=== PATIENT | male | born 1995 | race Caucasian/White ===

== ENCOUNTER 2016-07-08 14:38 | Day surgery (SDC) | payer MEDICAID ==
[~2016-07-08 14:38] MED LIST: DIPHENHYDRAMINE HCL 50 MG/ML VIAL ONE; MIDAZOLAM 2 MG/2 ML INJ ONE; NALOXONE HCL INJ/PF 0.4 MG/1 ML SDV ONE; ONDANSETRON HCL INJ/PF 4 MG/2 ML SDV ONE; PROMETHAZINE HCL INJ 25 MG/1 ML VIAL ONE
[2016-07-08] MEDS ORDERED: GLUCAGON,HUMAN RECOMB 1 MG INJ ONE (14:39)
[2016-07-08] MEDS ORDERED: EPINEPHRINE INJ 1 MG/10 ML DISP.SYRIN ONE (14:39)
[2016-07-08] MEDS ORDERED: FLUMAZENIL INJ 0.5 MG/5 ML VIAL IV ONE (14:39)
[2016-07-08] MEDS: MIDAZOLAM 2 MG/2 ML INJ ONE ×2 (14:56→15:00)
[2016-07-08] MEDS: FENTANYL CITRATE INJ/PF 100 MCG/2 ML AMPUL ONE ×3 (14:58→15:04)
--- NOTE | 2016-07-08 15:11 | Operative Report ---
Operative Report DATE OF SURGERY: 07/08/16 Operative Report: The risks benefits and alternatives of the procedure explained to the patient in detail and informed consent is obtained that GIF Olympus video scope was inserted into the patient's mouth and hypopharynx the esophagus is identified intubated and insufflated the scope was then advanced through the esophagus stomach and duodenum retroflexion maneuver is done the esophagus stomach and first and second portions of the duodenum examined PREOPERATIVE DIAGNOSIS: Follow-up esophageal ulcer. Patient has eosinophilic esophagitis POSTOPERATIVE DIAGNOSIS: Esophageal rings and furrows that are consistent with eosinophilic esophagitis. Hiatal hernia. Gastritis OPERATION: EGD with biopsy SURGEON: GASTON GRIFFITH ANESTHESIA: Moderate Sedation - 4 mg of Versed, 150 g of fentanyl. TISSUE REMOVED OR ALTERED: Gastric specimens obtained to rule out for Helicobacter pylori. COMPLICATIONS: None. ESTIMATED BLOOD LOSS: none. INTRAOPERATIVE FINDINGS: Esophageal rings and furrows. Hiatal hernia. Gastritis PROCEDURE: Patient tolerated the procedure well. No immediate postprocedure complications are noted. Patient is discharged in good condition. Discharge date 07/08/2016. Discharge diet: Regular. Discharge activity: Regular. He has a 2-3 follow-up to discuss findings. Patient is instructed to go to emergency room call the office if any further problems or questions. Await on biopsies.
[2016-07-08 16:30] VITALS: BP 122/69
== END 2016-07-08 16:10 | disposition home or self-care (01) ==
LOC: END 14:38
PROVIDERS: ATTEND Internal Medicine Gastroenterology
PROC: 0DB68ZX Excision of Stomach, Via Natural or Artificial Opening Endoscopic, Diagnostic (ICD-10-PCS; principal; 2016-07-08 14:30)
DX: K29.50 Unspecified chronic gastritis without bleeding (principal); B96.81 Helicobacter pylori [H. pylori] as the cause of diseases classified elsewhere; K44.9 Diaphragmatic hernia without obstruction or gangrene; K20.0 Eosinophilic esophagitis
CPT/HCPCS: 43239; J2250; J3010; J2405; J0171; J1200; J1610; J2310; J2550; J3490

== ENCOUNTER 2016-07-30 18:19 | Emergency (ER) | payer MEDICAID ==
--- NOTE | 2016-07-30 18:38 | ER Document Report ---
ED Medical Screen (RME) - General Stated Complaint: FEVER Time seen by provider: 18:35 Mode of Arrival: Ambulatory Information source: Patient Notes: 21-year-old male presents to ED for cough and fever since yesterday. Patient states she passed out once yesterday and twice today. He was sent over from the doctor's office for temperature of 103 at the urgent care and passed out in urgent care they told him to come to the emergency room then at 12:30. He states he came into the emergency room and was 2 packs we went home he states yesterday his temperature was 104.3. He states he's been eat and a lot of ice since then and his temperature is now 99.2. I have greeted and performed a rapid initial assessment of this patient. A comprehensive ED assessment and evaluation of the patient, analysis of test results and completion of medical decision making process will be conducted by an additional ED providers. TRAVEL OUTSIDE OF THE [place] IN LAST 30 DAYS: No - Related Data Allergies/Adverse Reactions: No Known Allergies Allergy (Verified 07/30/16 18:34) Past Medical History - Past Medical History Cardiac Medical History: Reports: Hx Hypertension Denies: Hx Coronary Artery Disease, Hx Heart Attack Pulmonary Medical History: Reports: Hx Bronchitis, Hx Pneumonia Denies: Hx Asthma, Hx COPD Neurological Medical History: Denies: Hx Cerebrovascular Accident, Hx Seizures GI Medical History: Denies: Hx Hiatal Hernia, Hx Ulcer Musculoskeltal Medical History: Denies Hx Arthritis Psychiatric Medical History: Reports: Hx Attention Deficit Hyperactivity Disorder, Hx Depression Past Surgical History: Reports: Hx Orthopedic Surgery. Denies: Hx Open Heart Surgery - Immunizations Immunizations up to date: Yes Hx Diphtheria, Pertussis, Tetanus Vaccination: Yes
[2016-07-30 19:42] LABS: ABSOLUTE EOSINOPHILS # (AUTO) 0.1 10^3/uL (0.0-0.6); ABSOLUTE LYMPHOCYTES (AUTO) 0.7 10^3/uL (0.5-4.7); ABSOLUTE MONOCYTES (AUTO) 0.5 10^3/uL (0.1-1.4); BASOPHILS % (AUTO) 0.9 % (0-2); EOSINOPHILS % (AUTO) 3.3 % (0-6); HEMATOCRIT 41.2 % (37.9-51.0); HGB HCT DIFFERENCE 0.8; LYMPHOCYTES % (AUTO) 22.3 % (13-45); MEAN CORPUSCULAR HGB CONC 33.8 g/dL (32.0-36.0); MEAN CORPUSCULAR VOLUME 83 fl (80-97); MONOCYTES % (AUTO) 13.7 % (3-13); RED BLOOD COUNT 4.98 10^6/uL (4.35-5.55); RED CELL DISTRIBUTION WIDTH 12.9 % (11.5-14.0); SEGMENTED NEUTROPHILS % (AUTO) 59.8 % (42-78); WHITE BLOOD COUNT 3.3 10^3/uL (4.0-10.5)
[2016-07-30 19:46] LABS: APPEARANCE,URINE SLIGHTLY-CLOUDY; BILIRUBIN,URINE NEGATIVE (NEGATIVE); GLUCOSE, URINE NEGATIVE (NEGATIVE); KETONES,URINE NEGATIVE (NEGATIVE); LEUKOCYTE ESTERASE,URINE NEGATIVE (NEGATIVE); NITRITE,URINE NEGATIVE (NEGATIVE); PROTEIN,URINE 30 mg/dL (NEGATIVE); URINE SPECIFIC GRAVITY 1.025; UROBILINOGEN,URINE NEGATIVE mg/dL (<2.0)
[2016-07-30 19:53] LABS: ALANINE AMINOTRANSFERASE 83 U/L (21-72); ALBUMIN 5.2 g/dL (3.5-5.0); ALKALINE PHOSPHATASE 72 U/L (38-126); ANION GAP 14 (5-19); ASPARTATE AMINO TRANSFERASE 44 U/L (17-59); BILIRUBIN,TOTAL 0.5 mg/dL (0.2-1.3); BLOOD UREA NITROGEN 15 mg/dL (7-20); CALCIUM 9.5 mg/dL (8.4-10.2); CARBON DIOXIDE 28 mmol/L (22-30); CHLORIDE 101 mmol/L (98-107); CREATININE RESULT 0.85 mg/dL (0.52-1.25); GLUCOSE 87 mg/dL (75-110); POTASSIUM 4.2 mmol/L (3.6-5.0); SODIUM 142.5 mmol/L (137-145); TOTAL PROTEIN 7.9 g/dL (6.3-8.2)
--- NOTE | 2016-07-30 21:18 | ER Document Report ---
ED General - General Chief Complaint: Fever Stated Complaint: FEVER Mode of Arrival: Ambulatory Notes: Patient is a 21-year-old male with past medical history of polycystic kidney disease who presents with 2 days of fever, headache, cough, sputum compression, and vomiting. Multiple sick contacts with similar illness. He has been trying Tylenol and ibuprofen with moderate improvement of his symptoms. Nothing worsens his symptoms. He was referred to the emergency department by urgent care. Denies history of similar symptoms in the past. Denies any neck pain, confusion, weakness or numbness. He has been able to tolerate oral intake since arriving here in the emergency department. TRAVEL OUTSIDE OF THE [place] IN LAST 30 DAYS: No - Related Data Allergies/Adverse Reactions: No Known Allergies Allergy (Verified 07/30/16 18:34) Past Medical History - General Information source: Patient - Social History Smoking Status: Never Smoker Chew tobacco use (# tins/day): No Frequency of alcohol use: None Drug Abuse: None Lives with: Parents Family History: Reviewed & Not Pertinent Patient has suicidal ideation: No Patient has homicidal ideation: No - Past Medical History Cardiac Medical History: Reports: Hx Hypertension Denies: Hx Coronary Artery Disease, Hx Heart Attack Pulmonary Medical History: Reports: Hx Bronchitis, Hx Pneumonia Denies: Hx Asthma, Hx COPD Neurological Medical History: Denies: Hx Cerebrovascular Accident, Hx Seizures Renal/ Medical History: Denies: Hx Peritoneal Dialysis GI Medical History: Denies: Hx Hiatal Hernia, Hx Ulcer Musculoskeltal Medical History: Denies Hx Arthritis Psychiatric Medical History: Reports: Hx Attention Deficit Hyperactivity Disorder, Hx Depression Past Surgical History: Reports: Hx Orthopedic Surgery. Denies: Hx Open Heart Surgery - Immunizations Immunizations up to date: Yes Hx Diphtheria, Pertussis, Tetanus Vaccination: Yes Review of Systems - Review of Systems Notes: Constitutional: Positive for fever. HENT: Negative for sore throat. Eyes: Negative for visual changes. Cardiovascular: Negative for chest pain. Respiratory: Positive for cough Gastrointestinal: Negative for abdominal pain, positive for vomiting Genitourinary: Negative for dysuria. Musculoskeletal: Negative for back pain. Skin: Negative for rash. Neurological: Positive for headaches, negative for weakness or numbness. 10 point ROS negative except as marked above and in HPI. Physical Exam - Vital signs Vitals: Temp Pulse Resp BP Pulse Ox 99.2 F 96 20 158/85 H 99 07/30/16 18:32 07/30/16 18:32 07/30/16 18:32 07/30/16 18:32 07/30/16 18:32 Interpretation: Hypertensive Notes: PHYSICAL EXAMINATION: GENERAL: Well-appearing, well-nourished and in no acute distress. HEAD: Atraumatic, normocephalic. EYES: Pupils equal round and reactive to light, extraocular movements intact, sclera anicteric, conjunctiva are normal. ENT: nares patent, oropharynx clear without exudates. Moist mucous membranes. NECK: Normal range of motion, supple without lymphadenopathy LUNGS: Breath sounds clear to auscultation bilaterally and equal. No wheezes rales or rhonchi. HEART: Regular rate and rhythm without murmurs ABDOMEN: Soft, nontender, normoactive bowel sounds. No guarding, no rebound. No masses appreciated. EXTREMITIES: Normal range of motion, no pitting or edema. No cyanosis. NEUROLOGICAL: No focal neurological deficits. Moves all extremities spontaneously and on command. PSYCH: Normal mood, normal affect. SKIN: Warm, Dry, normal turgor, no rashes or lesions noted. Course - Re-evaluation Re-evalutation: 07/30/16 21:17 Presentation is most consistent with a viral upper respiratory infection versus possible influenza. Patient is overall well appearance, vitals within normal limits, well-hydrated. Patient denies any headache, neck pain, and has no evidence of meningismus on examination. Lungs are clear bilaterally. No evidence of respiratory distress. Based on clinical exam and history, I do not suspect an acute pneumonia, meningitis, strep pharyngitis, or an acute encephalitis. Labs and CXR unremarkable. At this time will discharge with return precautions and follow-up recommendations. Verbal discharge instructions given a the bedside and opportunity for questions given. Medication warnings reviewed. Patient is in agreement with this plan and has verbalized understanding of return precautions and the need for primary care follow-up in the next 24-72 hours. - Vital Signs Vital signs: Temp Pulse Resp BP Pulse Ox 99.2 F 88 16 136/61 H 98 07/30/16 18:32 07/30/16 21:31 07/30/16 21:31 07/30/16 21:31 07/30/16 21:31 - Laboratory Result Diagrams: 07/30/16 19:22 07/30/16 19:22 Laboratory results interpreted by me: 07/30/16 07/30/16 07/30/16 19:22 19:22 19:22 WBC 3.3 L Monocytes % 13.7 H ALT 83 H Albumin 5.2 H Urine Protein 30 H - Diagnostic Test Radiology reviewed: Image reviewed, Reports reviewed Radiology results interpreted by me: 07/31/16 04:28 Chest x-ray: No acute infiltrate Discharge - Discharge Clinical Impression: Vomiting Qualifiers: Vomiting type: unspecified Vomiting Intractability: non-intractable Nausea presence: with nausea Qualified Code(s): R11.2 - Nausea with vomiting, unspecified Upper respiratory infection Qualifiers: URI type: unspecified URI Qualified Code(s): J06.9 - Acute upper respiratory infection, unspecified Condition: Good Disposition: HOME, SELF-CARE Additional Instructions: Your symptoms are most likely due to a viral infection it should resolve over the next 7-14 days. You should take [id number] guanfacine per bottle instructions to help thin the mucus. For nasal congestion: I would recommend that you get [id number] oxymetazoline also known is afrin. Use only per bottle instructions and be sure to never use this for more than 3 days if you can develop severe rebound congestion. You may also use tylenol or ibuprofen as needed for aches and thorat discomfort. Please be sure to drink plenty of fluids and get rest. Your symptoms should only get better from here. If you are getting worse in any regard, you need to return to the emergency department immediately. Return to the emergency department he began having difficulty breathing, chest pain, persistent vomiting, or any other symptoms that are concerning to you. Forms: Parent Work Note, Return to School, Return to Work
[2016-07-30 21:33] VITALS: BP 136/61
== END 2016-07-30 21:36 | disposition home or self-care (01) ==
LOC: ER 18:19
DX: J06.9 Acute upper respiratory infection, unspecified (principal); R11.2 Nausea with vomiting, unspecified; R50.9 Fever, unspecified; Q61.3 Polycystic kidney, unspecified; I10 Essential (primary) hypertension
CPT/HCPCS: 36415; 71020; 80053; 81001; 85025; 87040; 99283

== ENCOUNTER 2016-10-11 01:07 | Emergency (ER) | payer MEDICAID ==
[2016-10-11 01:28] VITALS: BP 152/89
--- NOTE | 2016-10-11 03:08 | ER Document Report ---
HPI - HPI Patient complains to provider of: hand laceration Onset: Just prior to arrival Onset/Duration: Sudden Severity: Moderate Pain Level: 3 Context: Patient presents to emergency department with complaints of laceration to his dorsal left hand. Patient reports he was putting tenting on his headlights when he cut himself on the blade. He reports his shots are up-to-date. Has full range of motion. Patient reports that he cannot feel his whole hand now. Associated Symptoms: None Exacerbated by: Denies Relieved by: Denies Similar symptoms previously: No Recently seen / treated by doctor: No - DERM Skin Color: Normal Past Medical History - General Information source: Patient - Social History Smoking Status: Unknown if Ever Smoked Cigarette use (# per day): No Frequency of alcohol use: None Drug Abuse: None Occupation: student and [employer] Lives with: Family Family History: Reviewed & Not Pertinent Patient has suicidal ideation: No Patient has homicidal ideation: No - Past Medical History Cardiac Medical History: Reports: Hx Hypertension Denies: Hx Coronary Artery Disease, Hx Heart Attack Pulmonary Medical History: Reports: Hx Bronchitis, Hx Pneumonia Denies: Hx Asthma, Hx COPD Neurological Medical History: Denies: Hx Cerebrovascular Accident, Hx Seizures Renal/ Medical History: Denies: Hx Peritoneal Dialysis GI Medical History: Denies: Hx Hiatal Hernia, Hx Ulcer Musculoskeltal Medical History: Denies Hx Arthritis Psychiatric Medical History: Reports: Hx Attention Deficit Hyperactivity Disorder, Hx Depression Past Surgical History: Reports: Hx Orthopedic Surgery. Denies: Hx Open Heart Surgery - Immunizations Immunizations up to date: Yes Hx Diphtheria, Pertussis, Tetanus Vaccination: Yes Vertical Provider Document - CONSTITUTIONAL Agree With Documented VS: Yes Exam Limitations: No Limitations General Appearance: WD/WN, No Apparent Distress - INFECTION CONTROL TRAVEL OUTSIDE OF THE [place] IN LAST 30 DAYS: No - HEENT HEENT: Atraumatic, Normocephalic - RESPIRATORY O2 Sat by Pulse Oximetry: 99 - MUSCULOSKELETAL/EXTREMETIES Musculoskeletal/Extremeties: MAEW, FROM, Non-Tender - NEURO Level of Consciousness: Awake, Alert, Appropriate - DERM Integumentary: Warm, Dry, Laceration - 11 mm left dorsal hand vertical, linear mcp between 1-2 digit Course - Vital Signs Vital signs: Temp Pulse Resp BP Pulse Ox 97.5 F 71 18 152/89 H 99 10/11/16 01:24 10/11/16 01:24 10/11/16 01:24 10/11/16 01:24 10/11/16 01:24 Procedures - Laceration/Wound Repair Left Hand Wound length (cm): 1.2 Wound's Depth, Shape: Superficial Laceration pre-procedure: Shur-Clens applied Wound explored: Clean Wound Repaired With: Steri-strips, Dermabond Hands back picture: 1 - 12 mm linear vertical laceration, no active bleeding, closed with steri strips and dermabond Discharge - Discharge Clinical Impression: Laceration, Elevated blood pressure reading Condition: Stable Disposition: HOME, SELF-CARE Instructions: Care of Steri-Strip Closure ([facility]), Skin Adhesive Closure ([facility]) Additional Instructions: *You have been treated for a laceration with steri strip and dermabond closure *Take ibuprofen as indicated for pain *Monitor the site for signs of infection such as increasing pain, redness, swelling, warmth *Keep your hand clean *Follow up with Magn[facility] rosenberg your primary care provider within 3 days for recheck *Return to ED for signs of infection, worsening condition, changes, needs Monitor your blood pressure. Your blood pressure was elevated today. This may be because you were anxious, in pain or because you need medication. It is important to follow up with your primary care provider for full evaluation. Forms: Elevated Blood Pressure, Return to Work
== END 2016-10-11 03:49 | disposition home or self-care (01) ==
LOC: ER 01:07
DX: S61.412A Laceration without foreign body of left hand, initial encounter (principal); R03.0 Elevated blood-pressure reading, without diagnosis of hypertension; W26.0XXA Contact with knife, initial encounter
CPT/HCPCS: 99282

== ENCOUNTER 2017-01-13 12:37 | Emergency (ER) | payer MEDICAID ==
[2017-01-13] MEDS ORDERED: NORMAL SALINE 1000 ML 1,000 ML IV ONE (13:01)
--- NOTE | 2017-01-13 13:09 | ER Document Report ---
ED General - General Chief Complaint: Snake Bite Stated Complaint: POSSIBLE SNAKE BITE Mode of Arrival: Ambulatory Information source: Patient Notes: 21 yr old male presents with snake bite to the [place] right forearm, pt denies any swelling. believes it was a rat snake TRAVEL OUTSIDE OF THE [place] IN LAST 30 DAYS: No - HPI Onset: Just prior to arrival Onset/Duration: Sudden Quality of pain: Achy Severity: Mild Pain Level: 1 Associated symptoms: Other Exacerbated by: Denies Relieved by: Denies Similar symptoms previously: No Recently seen / treated by doctor: No - Related Data Allergies/Adverse Reactions: lidocaine Adverse Reaction (Verified 01/13/17 12:41) Hives Past Medical History - Social History Smoking Status: Never Smoker Cigarette use (# per day): No Chew tobacco use (# tins/day): No Smoking Education Provided: No Family History: Reviewed & Not Pertinent Patient has suicidal ideation: No Patient has homicidal ideation: No - Past Medical History Cardiac Medical History: Reports: Hx Hypertension Denies: Hx Coronary Artery Disease, Hx Heart Attack Pulmonary Medical History: Reports: Hx Bronchitis, Hx Pneumonia Denies: Hx Asthma, Hx COPD Neurological Medical History: Denies: Hx Cerebrovascular Accident, Hx Seizures Renal/ Medical History: Denies: Hx Peritoneal Dialysis GI Medical History: Denies: Hx Hiatal Hernia, Hx Ulcer Musculoskeltal Medical History: Denies Hx Arthritis Psychiatric Medical History: Reports: Hx Attention Deficit Hyperactivity Disorder, Hx Depression Past Surgical History: Reports: Hx Orthopedic Surgery. Denies: Hx Open Heart Surgery - Immunizations Immunizations up to date: Yes Hx Diphtheria, Pertussis, Tetanus Vaccination: Yes Review of Systems - Review of Systems Notes: REVIEW OF SYSTEMS: CONSTITUTIONAL : Denies fever, chills, or sweats. Denies recent illness. EENT: Denies eye, ear, throat, or mouth pain or symptoms. Denies nasal or sinus congestion or discharge. Denies throat, tongue, or mouth swelling or difficulty swallowing. CARDIOVASCULAR: Denies chest pain. Denies palpitations or racing or irregular heart beat. Denies ankle edema. RESPIRATORY: Denies cough, cold, or chest congestion. Denies shortness of breath, difficulty breathing, or wheezing. GASTROINTESTINAL: Denies abdominal pain or distention. Denies nausea, vomiting , or diarrhea. Denies blood in vomitus, stools, or per rectum. Denies black, tarry stools. Denies constipation. GENITOURINARY: Denies difficulty urinating, painful urination, burning, frequency, blood in urine, or discharge. MUSCULOSKELETAL: Denies back or neck pain or stiffness. Denies joint pain or swelling. SKIN: right arm swelling HEMATOLOGIC : Denies easy bruising or bleeding. LYMPHATIC: Denies swollen, enlarged glands. NEUROLOGICAL: Denies confusion or altered mental status. Denies passing out or loss of consciousness. Denies dizziness or lightheadedness. Denies headache. Denies weakness or paralysis or loss of use of either side. Denies problems with gait or speech. Denies sensory loss, numbness, or tingling. Denies seizures. PSYCHIATRIC: Denies anxiety or stress. Denies depression, suicidal ideation, or homicidal ideation. ALL OTHER SYSTEMS REVIEWED AND NEGATIVE. Dictation was performed using [employer] recognition software PHYSICAL EXAMINATION: GENERAL: Well-appearing, well-nourished and in no acute distress. HEAD: Atraumatic, normocephalic. EYES: Pupils equal round and reactive to light, extraocular movements intact, sclera anicteric, conjunctiva are normal. ENT: Nares patent, oropharynx clear without exudates. Moist mucous membranes. NECK: Normal range of motion, supple without lymphadenopathy LUNGS: Breath sounds clear to auscultation bilaterally and equal. No wheezes rales or rhonchi. HEART: Regular rate and rhythm without murmurs ABDOMEN: Soft, nontender, nondistended abdomen. No guarding, no rebound. No masses appreciated. Musculoskeletal: Normal range of motion, no pitting or edema. No cyanosis. NEUROLOGICAL: Cranial nerves grossly intact. Normal speech, normal gait. Normal sensory, motor exams PSYCH: Normal mood, normal affect. SKIN: 2 bite shannan of the dorsal right forearm ,minimal edema Physical Exam - Vital signs Vitals: Temp Pulse Resp BP Pulse Ox 98.2 F 87 18 142/81 H 97 01/13/17 12:41 01/13/17 12:41 01/13/17 12:41 01/13/17 12:41 01/13/17 12:41 Course - Re-evaluation Re-evalutation: 01/13/17 13:08 Lab work pending patient otherwise looks well probable non-venomous bite 01/13/17 15:10 pt watched throughout , no complications. pt dc home with very close return precautions After performing a Medical Screening Examination, I estimate there is LOW risk for OPEN FRACTURE, COMPARTMENT SYNDROME, TENDON RUPTURE, ACUTE NEUROVASCULAR INJURY, or RETAINED FOREIGN BODY, thus I consider the discharge disposition reasonable. Also, there is no evidence or peritonitis, sepsis, or toxicity. I have reevaluated this patient multiple times and no significant life threatening changes are noted. The patient and I have discussed the diagnosis and risks, and we agree with discharging home with close follow-up with the understanding that symptoms and presentations can change. We also discussed returning to the Emergency Department immediately if new or worsening symptoms occur. We have discussed the symptoms which are most concerning (e.g., changing or worsening pain, fever, numbness, weakness, cool or painful digits) that necessitate immediate return. - Vital Signs Vital signs: Temp Pulse Resp BP Pulse Ox 98.2 F 87 17 130/78 H 99 01/13/17 12:41 01/13/17 12:41 01/13/17 14:01 01/13/17 14:00 01/13/17 14:01 - Laboratory Result Diagrams: 01/13/17 13:30 01/13/17 13:30 Laboratory results interpreted by me: 01/13/17 13:30 Creatine Kinase 209 H Discharge - Discharge Clinical Impression: Snake bite Qualifiers: Encounter type: initial encounter Qualified Code(s): W59.11XA - Bitten by nonvenomous snake, initial encounter Condition: Stable Disposition: HOME, SELF-CARE Instructions: Snakebites ([facility]) Additional Instructions: Follow up with your physician tomorrow for further care or return to the ED IMMEDIATELY if symptoms worsen or new concerns occur. If you cannot afford to follow up with your primary care physician a list of low cost clinics have been provided at the end of your discharge papers as well.
[2017-01-13 13:49] LABS: ABSOLUTE EOSINOPHILS # (AUTO) 0.2 10^3/uL (0.0-0.6); ABSOLUTE LYMPHOCYTES (AUTO) 1.5 10^3/uL (0.5-4.7); ABSOLUTE MONOCYTES (AUTO) 0.5 10^3/uL (0.1-1.4); ABSOLUTE NEUT (AUTO) 3.4 10^3/uL (1.7-8.2); BASOPHILS % (AUTO) 0.7 % (0-2); EOSINOPHILS % (AUTO) 3.1 % (0-6); HEMATOCRIT 39.9 % (37.9-51.0); HEMOGLOBIN 13.7 g/dL (13.5-17.0); HGB HCT DIFFERENCE 1.2; LYMPHOCYTES % (AUTO) 26.4 % (13-45); MEAN CORPUSCULAR HEMOGLOBIN 28.2 pg (27.0-33.4); MEAN CORPUSCULAR HGB CONC 34.3 g/dL (32.0-36.0); MEAN CORPUSCULAR VOLUME 82 fl (80-97); MONOCYTES % (AUTO) 8.3 % (3-13); RED BLOOD COUNT 4.86 10^6/uL (4.35-5.55); RED CELL DISTRIBUTION WIDTH 13.2 % (11.5-14.0); SEGMENTED NEUTROPHILS % (AUTO) 61.5 % (42-78); WHITE BLOOD COUNT 5.6 10^3/uL (4.0-10.5)
[2017-01-13 13:54] LABS: PROTHROMBIN TIME 13.1 SEC (11.4-15.4)
[2017-01-13 13:55] LABS: FIBRINOGEN 295 mg/dL (209-497)
[2017-01-13 14:10] LABS: D-DIMER < 0.27 ug/mL (0.00-0.50)
[2017-01-13 14:14] LABS: APPEARANCE,URINE CLEAR; BILIRUBIN,URINE NEGATIVE (NEGATIVE); GLUCOSE, URINE NEGATIVE (NEGATIVE); KETONES,URINE NEGATIVE (NEGATIVE); LEUKOCYTE ESTERASE,URINE NEGATIVE (NEGATIVE); NITRITE,URINE NEGATIVE (NEGATIVE); PROTEIN,URINE NEGATIVE (NEGATIVE); URINE SPECIFIC GRAVITY 1.026; UROBILINOGEN,URINE NEGATIVE mg/dL (<2.0)
[2017-01-13 14:23] LABS: ANION GAP 13 (5-19); BLOOD UREA NITROGEN 16 mg/dL (7-20); CALCIUM 9.7 mg/dL (8.4-10.2); CARBON DIOXIDE 24 mmol/L (22-30); CHLORIDE 104 mmol/L (98-107); CREATINE KINASE 209 U/L (55-170); CREATININE RESULT 0.74 mg/dL (0.52-1.25); GLUCOSE 84 mg/dL (75-110); POTASSIUM 4.3 mmol/L (3.6-5.0); SODIUM 141.4 mmol/L (137-145)
[2017-01-13 15:22] VITALS: BP 116/71
== END 2017-01-13 15:15 | disposition home or self-care (01) ==
LOC: ER 12:37
DX: T63.001A Toxic effect of unspecified snake venom, accidental (unintentional), initial encounter (principal); W59.11XA Bitten by nonvenomous snake, initial encounter
CPT/HCPCS: 99283; 96360; 96361; 36415; 82550; 85025; 85384; 85362; 85610; 85730; 83874; 80048; 81001; 85379; J7030

== ENCOUNTER 2018-07-21 10:00 | Emergency (ER) | payer SELFPAY ==
[2018-07-21] MEDS ORDERED: NORMAL SALINE 1000 ML 1,000 ML IV ONE (10:23)
[2018-07-21] MEDS ORDERED: ONDANSETRON HCL INJ/PF 4 MG/2 ML SDV IV ONE (10:23)
[2018-07-21] MEDS ORDERED: HYDROMORPHONE HCL INJ/PF 2 MG/ML AMPULE IV ONE ×2 (10:23→15:06)
--- NOTE | 2018-07-21 10:26 | ER Document Report ---
ED Medical Screen (RME) - General Chief Complaint: Abdominal Pain Stated Complaint: ABDOMINAL PAIN Time Seen by Provider: 07/21/18 10:14 Mode of Arrival: Ambulatory Information source: Patient Notes: This is a 23-year-old man with a history of esophageal ulcers, polycystic kidney disease, hypertension who is been taking Naprosyn for the past week (prescribed by primary care doctor at [facility]). Patient presents to the emergency room with right upper quadrant pain starting approximately 7:30 AM. He does have nausea and vomiting. The patient vomited 3 times. He states that on the third episode, he had gross blood in the vomitus (he has a picture of it: It looks like gross red blood). He does have right upper quadrant tenderness in the emergency room. He states that he was prescribed the Naprosyn because of right knee pain which she is been experiencing. He states that he was told he has arthritis and was given the Naprosyn which she is been taking for a week. He does state that he was having some nausea last night but the pain started this morning. TRAVEL OUTSIDE OF THE [place] IN LAST 30 DAYS: No - Related Data Allergies/Adverse Reactions: acetaminophen [From Percocet] Adverse Reaction (Verified 07/21/18 10:01) oxycodone [From Percocet] Adverse Reaction (Verified 07/21/18 10:01) Past Medical History - Social History Frequency of alcohol use: Rare Drug Abuse: None - Past Medical History Cardiac Medical History: Reports: Hx Hypertension Denies: Hx Coronary Artery Disease, Hx Heart Attack Pulmonary Medical History: Reports: Hx Bronchitis, Hx Pneumonia Denies: Hx Asthma, Hx COPD Neurological Medical History: Denies: Hx Cerebrovascular Accident, Hx Seizures Renal/ Medical History: Denies: Hx Peritoneal Dialysis GI Medical History: Denies: Hx Hiatal Hernia, Hx Ulcer Musculoskeltal Medical History: Denies Hx Arthritis Psychiatric Medical History: Reports: Hx Attention Deficit Hyperactivity Disorder, Hx Depression Past Surgical History: Reports: Hx Orthopedic Surgery. Denies: Hx Open Heart Surgery - Immunizations Immunizations up to date: Yes Hx Diphtheria, Pertussis, Tetanus Vaccination: Yes Physical Exam - Vital signs Vitals: Temp Pulse Resp BP Pulse Ox 97.7 F 91 18 128/64 H 98 07/21/18 10:05 07/21/18 10:05 07/21/18 10:05 07/21/18 10:05 07/21/18 10:05 Course - Vital Signs Vital signs: Temp Pulse Resp BP Pulse Ox 97.7 F 91 18 128/64 H 98 07/21/18 10:05 07/21/18 10:05 07/21/18 10:05 07/21/18 10:05 07/21/18 10:05
[2018-07-21 10:56] LABS: ABSOLUTE BASOPHILS # (AUTO) 0.1 10^3/uL (0.0-0.2); ABSOLUTE EOSINOPHILS # (AUTO) 0.4 10^3/uL (0.0-0.6); ABSOLUTE LYMPHOCYTES (AUTO) 1.9 10^3/uL (0.5-4.7); ABSOLUTE MONOCYTES (AUTO) 0.6 10^3/uL (0.1-1.4); BASOPHILS % (AUTO) 0.9 % (0-2); HEMATOCRIT 44.9 % (37.9-51.0); HEMOGLOBIN 16.1 g/dL (13.5-17.0); LYMPHOCYTES % (AUTO) 23.4 % (13-45); MEAN CORPUSCULAR HEMOGLOBIN 29.1 pg (27.0-33.4); MEAN CORPUSCULAR VOLUME 81 fl (80-97); MONOCYTES % (AUTO) 7.8 % (3-13); PLATELET COUNT 310 10^3/uL (150-450); RED BLOOD COUNT 5.54 10^6/uL (4.35-5.55); RED CELL DISTRIBUTION WIDTH 13.4 % (11.5-14.0); SEGMENTED NEUTROPHILS % (AUTO) 62.9 % (42-78); TOTAL CELLS COUNTED % (AUTO) 100 %
[2018-07-21 10:59] LABS: APPEARANCE,URINE CLEAR; BILIRUBIN,URINE NEGATIVE (NEGATIVE); COLOR,URINE YELLOW; GLUCOSE, URINE NEGATIVE (NEGATIVE); KETONES,URINE NEGATIVE (NEGATIVE); LEUKOCYTE ESTERASE,URINE NEGATIVE (NEGATIVE); NITRITE,URINE NEGATIVE (NEGATIVE); PROTEIN,URINE NEGATIVE (NEGATIVE); URINE SPECIFIC GRAVITY 1.025; UROBILINOGEN,URINE NEGATIVE mg/dL (<2.0)
--- NOTE | 2018-07-21 11:49 | RADIOLOGY REPORT (SQ) ---
EXAM DESCRIPTION: U/S ABDOMEN LIMITED W/O DOP COMPLETED DATE/TIME: 07/21/2018 11:38 am REASON FOR STUDY: upper abdominal pain r/o gb disease COMPARISON: None. TECHNIQUE: Dynamic and static grayscale images acquired of the abdomen and recorded on PACS. Additio zach selected color Doppler and spectral images recorded. LIMITATIONS: None. FINDINGS: PANCREAS: No masses. Visualized pancreatic duct normal caliber. LIVER: No masses. Echotexture normal. LIVER VASCULATURE: Normal directional flow of the main portal vein and hepatic veins. GALLBLADDER: No stones. Normal wall thickness. No pericholecystic fluid. ULTRASOUND-DETECTED [place]'S SIGN: Negative. INTRAHEPATIC DUCTS AND COMMON DUCT: CBD and intrahepatic ducts normal caliber. No filling defects. INFERIOR VENA CAVA: Normal flow. AORTA: No aneurysm. RIGHT KIDNEY: The right kidney is enlarged by multiple cysts. There is a large nonobstructive calcu saud measuring 1.9 cm in the superior pole. PERITONEAL AND RIGHT PLEURAL SPACE: No ascites or effusions. OTHER: No other significant findings. IMPRESSION: 1. No ultrasound findings of the right upper quadrant to explain acute abdominal pain. Consider CT or MRI to further evaluate unexplained abdominal pain. 2. Polycystic right kidney with a large nonobstructive calculus, findings in keeping with reported h istory of polycystic kidney disease. TECHNICAL DOCUMENTATION: JOB ID: [id number] [employer]- All Rights Reserved Reading location - IP/workstation name: [email or web address]
[2018-07-21] MEDS ORDERED: LIDOCAINE 2% VISCOUS SOLN 20 ML UDCUP PO ONE (12:14)
[2018-07-21] MEDS ORDERED: METOCLOPRAMIDE HCL ORAL SOLN 10 MG/10 ML UDCUP PO ONE (12:14)
[2018-07-21] MEDS ORDERED: MAG HYDROX/AL HYDROX/SIMETH SUSP 30 ML UDCUP PO ONE (12:14)
[2018-07-21] MEDS ORDERED: PANTOPRAZOLE SODIUM 40 MG VIAL IV ONE (12:14)
--- NOTE | 2018-07-21 12:21 | ER Document Report ---
ED General - General Chief Complaint: Abdominal Pain Stated Complaint: ABDOMINAL PAIN Time Seen by Provider: 07/21/18 10:14 Mode of Arrival: Ambulatory TRAVEL OUTSIDE OF THE [place] IN LAST 30 DAYS: No - HPI Notes: Patient is a 23-year-old male that presents to the emergency department for chief complaint of abdominal pain. Patient reports acute onset of upper abdominal pain today. He states it is sharp and has been constant since onset. He denies aggravating or relieving factors. He does have a history of gastric ulcers which he states was a little over a year ago. He reports 3 episodes of emesis today and on the third when he had a lot of bright red blood. He did provide a photograph which is consistent with bright red hematemesis. Patient denies any melena, black tarry stool or bright red blood in his stool. Patient does report he has been on naproxen 500 twice daily for the last 4-5 days. He was prescribed this for knee pain. Patient also reports history of polycystic kidneys. Past Medical History: Polycystic kidney disease, esophageal ulcers, hypertension Past Surgical History: Upper endoscopy Social History: Reviewed in chart Family History: Reviewed and noncontributory for presenting illness Allergies: Reviewed, see documented allergy list. REVIEW OF SYSTEMS: CONSTITUTIONAL : No fever No chills No diaphoresis No recent illness EENT: No vision changes No congestion No sore throat CARDIOVASCULAR: No chest pain No palpitations RESPIRATORY: No shortness of breath No cough No difficulty breathing GASTROINTESTINAL: abdominal pain nausea vomiting No diarrhea GENITOURINARY: No dysuria No hematuria No difficulty urinating MUSCULOSKELETAL: No back pain No leg pain No arm pain SKIN: No rashes No lesions LYMPHATIC: No swollen, enlarged glands. NEUROLOGICAL: No lightheadedness No headache No weakness No paresthesias PSYCHIATRIC: No anxiety No depression PHYSICAL EXAMINATION: Vital signs reviewed, nursing noted reviewed. GENERAL: Well-appearing, well-nourished and in no acute distress. HEAD: Atraumatic, normocephalic. EYES: Eyes appear normal, extraocular movements intact, sclera anicteric, conjunctiva are normal. ENT: nares patent, oropharynx clear without exudates. Moist mucous membranes. NECK: Normal range of motion, supple without lymphadenopathy LUNGS: Breath sounds clear to auscultation bilaterally and equal. No wheezes rales or rhonchi. HEART: Regular rate and rhythm without murmurs ABDOMEN: Soft, moderate epigastric tenderness, negative Swain sign, mild right upper quadrant tenderness, normoactive bowel sounds. No rebound, guarding, or rigidity. No masses appreciated. EXTREMITIES: Nontender, good range of motion, no pitting or edema. NEUROLOGICAL: No focal neurological deficits. Moves all extremities spontaneously Motor and sensory grossly intact on exam. PSYCH: Normal mood, normal affect. SKIN: Warm, Dry, normal turgor, no rashes or lesions noted on exposed skin - Related Data Allergies/Adverse Reactions: acetaminophen [From Percocet] Adverse Reaction (Verified 07/21/18 10:01) oxycodone [From Percocet] Adverse Reaction (Verified 07/21/18 10:01) Past Medical History - General Information source: Patient - Social History Smoking Status: Never Smoker Frequency of alcohol use: Rare Drug Abuse: None Family History: Reviewed & Not Pertinent Patient has suicidal ideation: No Patient has homicidal ideation: No - Past Medical History Cardiac Medical History: Reports: Hx Hypertension Denies: Hx Coronary Artery Disease, Hx Heart Attack Pulmonary Medical History: Reports: Hx Bronchitis, Hx Pneumonia Denies: Hx Asthma, Hx COPD Neurological Medical History: Denies: Hx Cerebrovascular Accident, Hx Seizures Renal/ Medical History: Denies: Hx Peritoneal Dialysis GI Medical History: Denies: Hx Hiatal Hernia, Hx Ulcer Musculoskeletal Medical History: Denies Hx Arthritis Psychiatric Medical History: Reports: Hx Attention Deficit Hyperactivity Disorder, Hx Depression Past Surgical History: Reports: Hx Orthopedic Surgery. Denies: Hx Open Heart Surgery - Immunizations Immunizations up to date: Yes Hx Diphtheria, Pertussis, Tetanus Vaccination: Yes Physical Exam - Vital signs Vitals: Temp Pulse Resp BP Pulse Ox 97.7 F 91 18 128/64 H 98 07/21/18 10:05 07/21/18 10:05 07/21/18 10:05 07/21/18 10:05 07/21/18 10:05 Course - Re-evaluation Re-evalutation: 07/21/18 12:18 Vitals reviewed. Nursing notes reviewed. Patient is hemodynamically stable. His hemoglobin is normal. He did have a large amount of bright red blood in his emesis given a photograph that he showed me today. Patient has a history of gastric ulcers with bleeding in the past and he has been on a course of NSAIDs for the last few days, I suspect he has another ulcer that is bleeding. Patient was given IV Protonix, Zofran, fluids and Dilaudid. X-ray will be obtained to evaluate for possible esophageal/gastric perforation although the patient's abdominal exam is non-peritoneal 07/21/18 15:27 Patient reevaluated. His nausea has completely subsided. He has not had any hematemesis in the emergency room. He did still have some epigastric pain despite the above medications and will be given another dose of Dilaudid. His vital signs are stable. His hemoglobin is 16. Acute abdominal series shows no free air and patient is not peritoneal, I do not suspect any rupture of his esophagus or stomach. Ultrasound of the right upper quadrant is unremarkable. His lipase is normal. Patient had a moderate amount of hematemesis given that initial photograph. With his history I think he likely has a bleeding ulcer in his esophagus or stomach. Patient was offered admission to the hospital for monitoring of his bleeding and repeat hemoglobin. Patient does not wish to be admitted to the hospital. He is currently only taking Pepcid. He will be started on omeprazole. I counseled him at length regarding dietary changes. He was informed to come immediately back to the emergency room if he has any more hematemesis or feels lightheaded. He knows he can return at any point in time for reevaluation as well. Patient has capacity to make medical decisions. He understands his options of admission and is still wanting to be discharged. He is hemodynamically stable will be discharged home. Laboratory 07/21/18 07/21/18 07/21/18 10:37 10:37 10:37 WBC 8.0 RBC 5.54 Hgb 16.1 Hct 44.9 MCV 81 MCH 29.1 MCHC 36.0 RDW 13.4 Plt Count 310 Seg Neutrophils % 62.9 Lymphocytes % 23.4 Monocytes % 7.8 Eosinophils % 5.0 Basophils % 0.9 Absolute Neutrophils 5.0 Absolute Lymphocytes 1.9 Absolute Monocytes 0.6 Absolute Eosinophils 0.4 Absolute Basophils 0.1 PT INR Sodium Cancelled Potassium Cancelled Chloride Cancelled Carbon Dioxide Cancelled Anion Gap Cancelled BUN Cancelled Creatinine Cancelled Est GFR ( Amer) Cancelled Est GFR (Non-Af Amer) Cancelled Glucose Cancelled Calcium Cancelled Total Bilirubin Cancelled Direct Bilirubin Cancelled Neonat Total Bilirubin Cancelled Neonat Direct Bilirubin Cancelled Neonat Indirect Bili Cancelled AST Cancelled ALT Cancelled Alkaline Phosphatase Cancelled Total Protein Cancelled Albumin Cancelled Lipase Cancelled Urine Color YELLOW Urine Appearance CLEAR Urine pH 5.0 Ur Specific Wilson 1.025 Urine Protein NEGATIVE Urine Glucose (UA) NEGATIVE Urine Ketones NEGATIVE Urine Blood NEGATIVE Urine Nitrite NEGATIVE Urine Bilirubin NEGATIVE Urine Urobilinogen NEGATIVE Ur Leukocyte Esterase NEGATIVE Urine WBC (Auto) 1 Urine RBC (Auto) 0 U Hyaline Cast (Auto) 3 Squamous Epi Cells Auto <1 Urine Mucus (Auto) FEW Urine Ascorbic Acid NEGATIVE Blood Type Antibody Screen 07/21/18 07/21/18 07/21/18 12:12 12:12 14:01 WBC RBC Hgb Hct MCV MCH MCHC RDW Plt Count Seg Neutrophils % Lymphocytes % Monocytes % Eosinophils % Basophils % Absolute Neutrophils Absolute Lymphocytes Absolute Monocytes Absolute Eosinophils Absolute Basophils PT 13.5 INR 0.98 Sodium 139.9 Potassium 4.5 Chloride 101 Carbon Dioxide 27 Anion Gap 12 BUN 27 H Creatinine 0.81 Est GFR ( Amer) > 60 Est GFR (Non-Af Amer) > 60 Glucose 104 Calcium 9.9 Total Bilirubin 0.8 Direct Bilirubin 0.2 Neonat Total Bilirubin Not Reportable Neonat Direct Bilirubin Not Reportable Neonat Indirect Bili Not Reportable AST 33 ALT 69 Alkaline Phosphatase 56 Total Protein 8.1 Albumin 5.2 H Lipase 52.3 Urine Color Urine Appearance Urine pH Ur Specific Wilson Urine Protein Urine Glucose (UA) Urine Ketones Urine Blood Urine Nitrite Urine Bilirubin Urine Urobilinogen Ur Leukocyte Esterase Urine WBC (Auto) Urine RBC (Auto) U Hyaline Cast (Auto) Squamous Epi Cells Auto Urine Mucus (Auto) Urine Ascorbic Acid Blood Type A POSITIVE Antibody Screen NEGATIVE Abdomen Ultrasound 07/21/18 10:23 IMPRESSION: 1. No ultrasound findings of the right upper quadrant to explain acute abdominal pain. Consider CT or MRI to further evaluate unexplained abdominal pain. 2. Polycystic right kidney with a large nonobstructive calculus, findings in keeping with reported history of polycystic kidney disease. Acute Abdomen Series 07/21/18 12:20 IMPRESSION: NO RADIOGRAPHIC EVIDENCE FOR ACUTE ABDOMINAL DISEASE. - Vital Signs Vital signs: Temp Pulse Resp BP Pulse Ox 97.3 F 72 16 113/50 L 97 07/21/18 15:10 07/21/18 15:10 07/21/18 15:10 07/21/18 15:10 07/21/18 15:10 - Laboratory Result Diagrams: 07/21/18 10:37 07/21/18 12:12 Laboratory results interpreted by me: 07/21/18 12:12 BUN 27 H Albumin 5.2 H Discharge - Discharge Clinical Impression: Hematemesis Qualifiers: Nausea presence: with nausea Qualified Code(s): K92.0 - Hematemesis Abdominal pain Qualifiers: Abdominal location: epigastric Qualified Code(s): R10.13 - Epigastric pain Condition: Stable Disposition: HOME, SELF-CARE Instructions: Abdominal Pain ([facility]) Additional Instructions: Please return to the emergency department if you have any worsening, or concern of your symptoms. Please return to the emergency department if you develop chest pain, difficulty breathing, severe abdominal pain, or ongoing vomiting. Please follow-up with your primary care physician in 2-3 days and any other recommended physicians. If prescribed, take all medications as directed. If you have any questions or concerns do not hesitate to return the emergency department for evaluation. You need to have another EGD performed, call Dr. Griffith to schedule this Prescriptions: Omeprazole 40 mg PO DAILY #30 capsule. Referrals: GASTON GRIFFITH MD [ACTIVE STAFF] - Follow up in 3-5 days
[2018-07-21 12:35] LABS: INTERNATIONAL RATION (INR) 0.98; PROTHROMBIN TIME 13.5 SEC (11.4-15.4)
[2018-07-21 12:38] LABS: ALANINE AMINOTRANSFERASE 69 U/L (21-72); ALBUMIN 5.2 g/dL (3.5-5.0); ALKALINE PHOSPHATASE 56 U/L (38-126); ANION GAP 12 (5-19); ASPARTATE AMINO TRANSFERASE 33 U/L (17-59); BILIRUBIN,DIRECT 0.2 mg/dL (0.0-0.4); BILIRUBIN,TOTAL 0.8 mg/dL (0.2-1.3); BLOOD UREA NITROGEN 27 mg/dL (7-20); CALCIUM 9.9 mg/dL (8.4-10.2); CARBON DIOXIDE 27 mmol/L (22-30); CHLORIDE 101 mmol/L (98-107); GLUCOSE 104 mg/dL (75-110); LIPASE 52.3 U/L (23-300); POTASSIUM 4.5 mmol/L (3.6-5.0); SODIUM 139.9 mmol/L (137-145); TOTAL PROTEIN 8.1 g/dL (6.3-8.2)
--- NOTE | 2018-07-21 12:47 | RADIOLOGY REPORT (SQ) ---
EXAM DESCRIPTION: ACUTE ABDOMEN SERIES COMPLETED DATE/TIME: 07/21/2018 12:35 pm REASON FOR STUDY: abdominal pain COMPARISON: Chest films 07/30/2016 NUMBER OF VIEWS: Three views. TECHNIQUE: Frontal chest, supine abdomen and upright abdomen radiographic images acquired. LIMITATIONS: None. FINDINGS: CHEST: Lungs clear of infiltrates. Cardiac silhouette size, celine unremarkable. FREE AIR: None. No abnormal gas collections. BOWEL GAS PATTERN: Nonobstructive pattern. No dilated loops or air fluid levels. CALCIFICATIONS: No suspicious calcifications. HARDWARE: None in the abdomen. SOFT TISSUES: No gross mass or suggestion of organomegaly. BONES: No acute fracture. No worrisome bone lesions. OTHER: No other significant finding. IMPRESSION: NO RADIOGRAPHIC EVIDENCE FOR ACUTE ABDOMINAL DISEASE. TECHNICAL DOCUMENTATION: JOB ID: [id number] [employer]- All Rights Reserved Reading location - IP/workstation name: [email or web address]
[2018-07-21 15:13] VITALS: BP 113/50
== END 2018-07-21 15:59 | disposition home or self-care (01) ==
LOC: ER 10:00
DX: K25.9 Gastric ulcer, unspecified as acute or chronic, without hemorrhage or perforation (principal); Z79.899 Other long term (current) drug therapy; R10.13 Epigastric pain; K92.0 Hematemesis; R10.816 Epigastric abdominal tenderness; R10.811 Right upper quadrant abdominal tenderness; Q61.3 Polycystic kidney, unspecified; M25.569 Pain in unspecified knee; I10 Essential (primary) hypertension; Z87.11 Personal history of peptic ulcer disease
CPT/HCPCS: 96376; 99284; 96361; 96374; 96375; 86900; 86901; 36415; 86850; 83690; 85025; 85610; 80053; 81001; 74022; 76705; J3490; J1170; S0164; J2405; J7030

== ENCOUNTER 2019-04-08 15:32 | Emergency (ER) | payer SELFPAY ==
[2019-04-08 15:57] LABS: ABSOLUTE EOSINOPHILS # (AUTO) 0.4 10^3/uL (0.0-0.6); ABSOLUTE LYMPHOCYTES (AUTO) 1.8 10^3/uL (0.5-4.7); ABSOLUTE MONOCYTES (AUTO) 0.5 10^3/uL (0.1-1.4); BASOPHILS % (AUTO) 0.7 % (0-2); EOSINOPHILS % (AUTO) 5.7 % (0-6); HEMATOCRIT 41.6 % (37.9-51.0); HEMOGLOBIN 14.6 g/dL (13.5-17.0); LYMPHOCYTES % (AUTO) 26.7 % (13-45); MEAN CORPUSCULAR HEMOGLOBIN 28.1 pg (27.0-33.4); MEAN CORPUSCULAR HGB CONC 35.2 g/dL (32.0-36.0); MEAN CORPUSCULAR VOLUME 80 fl (80-97); MONOCYTES % (AUTO) 7.2 % (3-13); PLATELET COUNT 273 10^3/uL (150-450); RED CELL DISTRIBUTION WIDTH 12.8 % (11.5-14.0); SEGMENTED NEUTROPHILS % (AUTO) 59.7 % (42-78); TOTAL CELLS COUNTED % (AUTO) 100 %; WHITE BLOOD COUNT 6.8 10^3/uL (4.0-10.5)
[2019-04-08] MEDS ORDERED: ETOMIDATE INJ/PF 20 MG/10 ML SDV IV ONE (16:01)
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
[2019-04-08 16:14] LABS: ALBUMIN 5.2 g/dL (3.5-5.0); ALKALINE PHOSPHATASE 52 U/L (38-126); ANION GAP 11 (5-19); ASPARTATE AMINO TRANSFERASE 37 U/L (17-59); BILIRUBIN,DIRECT 0.2 mg/dL (0.0-0.4); BILIRUBIN,TOTAL 0.4 mg/dL (0.2-1.3); BLOOD UREA NITROGEN 19 mg/dL (7-20); CALCIUM 10.4 mg/dL (8.4-10.2); CARBON DIOXIDE 29 mmol/L (22-30); CHLORIDE 100 mmol/L (98-107); GLUCOSE 106 mg/dL (75-110); POTASSIUM 4.2 mmol/L (3.6-5.0); TOTAL PROTEIN 8.3 g/dL (6.3-8.2)
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
--- NOTE | 2019-04-08 22:41 | EKG REPORT ---
SEVERITY:- OTHERWISE NORMAL ECG - SINUS TACHYCARDIA : Confirmed by: Mayi Ortiz MD 08-Apr-2019 22:40:55
== END 2019-04-08 16:20 | disposition short-term general hospital (02) ==
LOC: ER 15:32
DX: S17.0 Crushing injury of larynx and trachea (principal); V86.69XA Passenger of other special all-terrain or other off-road motor vehicle injured in nontraffic accident, initial encounter; R11.0 Nausea; R07.89 Other chest pain; R10.11 Right upper quadrant pain; Z88.6 Allergy status to analgesic agent; I10 Essential (primary) hypertension
CPT/HCPCS: 36415; 70498; 80053; 83690; 84484; 85025; 93005; 93010; 99291

== ENCOUNTER 2020-01-15 22:30 | Emergency (ER) | payer SELFPAY ==
[2020-01-15] MEDS ORDERED: ASPIRIN 81 MG TABLET, CHEWABLE PO ONE (23:10)
--- NOTE | 2020-01-15 23:12 | ER Document Report ---
ED Medical Screen (RME) - General Chief Complaint: Chest Pain Stated Complaint: CHEST PAIN Time Seen by Provider: 01/15/20 23:06 Mode of Arrival: Ambulatory Information source: Patient Notes: Patient presents complaining of midsternal chest pain off and on for the past 4 days. Patient denies any cough or cold symptoms. Patient reports pain is sharp. Patient does report a history of polycystic kidney disease. Patient also reports a family history of his father and grandfather having heart attacks before the age of 25. I have greeted and performed a rapid initial assessment of this patient. A comprehensive ED assessment and evaluation of the patient, analysis of test results and completion of the medical decision making process will be conducted by additional ED providers. TRAVEL OUTSIDE OF THE [place] IN LAST 30 DAYS: No - Related Data Allergies/Adverse Reactions: acetaminophen [From Percocet] Adverse Reaction (Verified 07/21/18 10:01) oxycodone [From Percocet] Adverse Reaction (Verified 07/21/18 10:01) Past Medical History - Social History Frequency of alcohol use: Social Drug Abuse: None - Past Medical History Cardiac Medical History: Reports: Hx Hypertension Denies: Hx Coronary Artery Disease, Hx Heart Attack Pulmonary Medical History: Reports: Hx Bronchitis, Hx Pneumonia Denies: Hx Asthma, Hx COPD Neurological Medical History: Denies: Hx Cerebrovascular Accident, Hx Seizures Renal/ Medical History: Denies: Hx Peritoneal Dialysis GI Medical History: Denies: Hx Hiatal Hernia, Hx Ulcer Musculoskeltal Medical History: Denies Hx Arthritis Psychiatric Medical History: Reports: Hx Attention Deficit Hyperactivity Disorder, Hx Depression Past Surgical History: Reports: Hx Orthopedic Surgery. Denies: Hx Open Heart Surgery - Immunizations Immunizations up to date: Yes Hx Diphtheria, Pertussis, Tetanus Vaccination: Yes Physical Exam - Vital signs Vitals: Temp Pulse Resp BP Pulse Ox 98.9 F 100 20 169/122 H 98 01/15/20 22:38 01/15/20 22:38 01/15/20 22:38 01/15/20 22:38 01/15/20 22:38 - General General appearance: Alert, Anxious - Cardiovascular Rhythm: Regular Heart sounds: S1 appreciated, S2 appreciated Course - Vital Signs Vital signs: Temp Pulse Resp BP Pulse Ox 98.9 F 100 20 169/122 H 98 01/15/20 22:38 01/15/20 22:38 01/15/20 22:38 01/15/20 22:38 01/15/20 22:38
--- NOTE | 2020-01-15 23:49 | RADIOLOGY REPORT (SQ) ---
CLINICAL INDICATION: cp. Chest pain TECHNIQUE: PA and lateral views were obtained of the chest COMPARISON: July 30, 2016. FINDINGS: The cardiomediastinal silhouette appears top normal. The lungs are grossly clear. No evidence of effusion or pneumothorax. Visualized bones are unremarkable. . IMPRESSION: No evidence of active intrathoracic disease . Lungs of low volume but grossly clear
[2020-01-16 00:03] LABS: ABSOLUTE EOSINOPHILS # (AUTO) 0.2 10^3/uL (0.0-0.6); ABSOLUTE LYMPHOCYTES (AUTO) 1.8 10^3/uL (0.5-4.7); ABSOLUTE MONOCYTES (AUTO) 0.5 10^3/uL (0.1-1.4); ABSOLUTE NEUT (AUTO) 2.2 10^3/uL (1.7-8.2); BASOPHILS % (AUTO) 0.9 % (0-2); EOSINOPHILS % (AUTO) 4.2 % (0-6); HEMATOCRIT 40.7 % (37.9-51.0); HEMOGLOBIN 14.5 g/dL (13.5-17.0); LYMPHOCYTES % (AUTO) 37.4 % (13-45); MEAN CORPUSCULAR HEMOGLOBIN 28.8 pg (27.0-33.4); MEAN CORPUSCULAR HGB CONC 35.6 g/dL (32.0-36.0); MEAN CORPUSCULAR VOLUME 81 fl (80-97); MONOCYTES % (AUTO) 11.2 % (3-13); PLATELET COUNT 244 10^3/uL (150-450); RED BLOOD COUNT 5.04 10^6/uL (4.35-5.55); RED CELL DISTRIBUTION WIDTH 12.7 % (11.5-14.0); SEGMENTED NEUTROPHILS % (AUTO) 46.3 % (42-78); TOTAL CELLS COUNTED % (AUTO) 100 %; WHITE BLOOD COUNT 4.8 10^3/uL (4.0-10.5)
[2020-01-16 00:07] LABS: APPEARANCE,URINE SLIGHTLY-CLOUDY; BILIRUBIN,URINE NEGATIVE (NEGATIVE); COLOR,URINE YELLOW; GLUCOSE, URINE NEGATIVE (NEGATIVE); KETONES,URINE NEGATIVE (NEGATIVE); LEUKOCYTE ESTERASE,URINE NEGATIVE (NEGATIVE); NITRITE,URINE NEGATIVE (NEGATIVE); PROTEIN,URINE 30 mg/dL (NEGATIVE); URINE SPECIFIC GRAVITY 1.027; UROBILINOGEN,URINE NEGATIVE mg/dL (<2.0)
[2020-01-16 00:17] LABS: URINE AMPHETAMINES SCREEN NEGATIVE; URINE BARBITURATES SCREEN NEGATIVE; URINE BENZODIAZEPINES SCREEN NEGATIVE; URINE COCAINE SCREEN NEGATIVE; URINE MARIJUANA (THC) SCREEN NEGATIVE; URINE METHADONE SCREEN NEGATIVE; URINE PHENCYCLIDINE SCREEN NEGATIVE
[2020-01-16 00:20] LABS: ALKALINE PHOSPHATASE 54 U/L (38-126); ANION GAP 10 (5-19); ASPARTATE AMINO TRANSFERASE 44 U/L (17-59); BILIRUBIN,TOTAL 0.3 mg/dL (0.2-1.3); BLOOD UREA NITROGEN 16 mg/dL (7-20); CALCIUM 9.9 mg/dL (8.4-10.2); CARBON DIOXIDE 25 mmol/L (22-30); CHLORIDE 103 mmol/L (98-107); GLUCOSE 109 mg/dL (75-110); POTASSIUM 4.6 mmol/L (3.6-5.0)
[2020-01-16 02:20] VITALS: BP 152/101
--- NOTE | 2020-01-16 13:16 | EKG REPORT ---
SEVERITY:- OTHERWISE NORMAL ECG - SINUS RHYTHM BORDERLINE RIGHT AXIS DEVIATION : Confirmed by: Juan Alberto Ramos MD 16-Jan-2020 13:16:00
== END 2020-01-16 02:20 | disposition left against medical advice (07) ==
LOC: ER 22:30
DX: R07.9 Chest pain, unspecified (principal); I10 Essential (primary) hypertension; Z87.01 Personal history of pneumonia (recurrent); Z82.49 Family history of ischemic heart disease and other diseases of the circulatory system; Z53.20 Procedure and treatment not carried out because of patient's decision for unspecified reasons
CPT/HCPCS: 36415; 71046; 80053; 80307; 81001; 83690; 84484; 85025; 93005; 93010; 99281